=== PATIENT | female | born 1930 | race Caucasian/White ===

== ENCOUNTER → 2016-10-26 | Outpatient (CLI) | payer MEDICARE, BC ==
--- NOTE | 2016-10-26 15:01 | NM ---
EXAMINATION TYPE: NM DatScan Brain SPECT DATE OF EXAM: 10/26/2016 2:51 PM COMPARISON: CT brain 21 September 2016 HISTORY: Amnesia TECHNIQUE: 10 drops of Lugol's solution was administered 1 hour prior to injection as a thyroid bloc rafa agent. After the administration of 4.16 mCi I-123 Ioflupane DaTscan. Images obtained 3 hours p ost injection. SPECT images of the brain were acquired with axial and coronal reconstructions. FINDINGS: Symmetric normal biodistribution of the radio pharmaceutical within the basal ganglia is noted. IMPRESSION: Normal SEVERINO scan
== END | disposition home or self-care (01) ==
LOC: RADNMMAIN 09:52
PROVIDERS: ATTEND Psychiatry & Neurology Neurology
DX: R41.3 Other amnesia (principal)
CPT/HCPCS: 78607; A9584

== ENCOUNTER 2017-04-05 09:59 | Inpatient (IN) | payer MEDICARE, BC ==
[2017-04-05] MEDS ORDERED: SODIUM CHLORIDE 0.9% 500 ML IV STA (10:27)
[2017-04-05] MEDS ORDERED: METOPROLOL TARTRATE 50 MG TAB PO STA (10:27)
[2017-04-05] MEDS ORDERED: ENALAPRILAT 1.25 MG/ML 1 ML VIAL IVP STA (10:27)
--- NOTE | 2017-04-05 10:32 | ED ---
General Adult HPI - General Chief complaint: Weakness Stated complaint: Weakness Time Seen by Provider: 04/05/17 10:00 Source: EMS, RN notes reviewed Mode of arrival: EMS Limitations: no limitations - History of Present Illness Initial comments: This is an 86-year-old female presents emergency Department because friend stated she was altered mentally confused he knows the date or the day of the week. Patient also had some facial droop that was very intermittent and patient herself complained of being very weak. Currently according to the same friends the patient is at her baseline at this point in time she is alert and oriented 3 she has no facial deficits and she feels fine. Patient denies headache patient denies any numbness or weakness patient states she didn't realize she had any slurred speech. Patient denies any chest pain palpitations difficulty breathing or shortness of breath. Patient denies any abdominal pain patient denies any nausea vomiting diarrhea. Patient denies any recent fever chills or cough. Patient denies any dysuria hematuria urinary frequency. - Related Data Home Medications Medication Instructions Recorded Confirmed Aspirin 81 mg PO DAILY 05/06/14 04/05/17 Omeprazole [PriLOSEC] 20 mg PO AC-BRKFST 05/06/14 04/05/17 Simvastatin [Zocor] 40 mg PO HS 05/06/14 04/05/17 Metoprolol Tartrate 50 mg PO QAM 03/24/16 04/05/17 Docusate [Colace] 100 mg PO DAILY 06/28/16 04/05/17 Metoprolol Tartrate [Lopressor] 25 mg PO HS 06/28/16 04/05/17 Furosemide [Lasix] 40 mg PO Q48H 07/20/16 04/05/17 Magnesium Oxide [Mag-Ox] 250 mg PO DAILY 07/20/16 04/05/17 Baclofen [Lioresal] 10 mg PO HS PRN 04/05/17 04/05/17 Calcium Carbonate [Calcium] 600 mg PO HS 04/05/17 04/05/17 Donepezil [Aricept] 5 mg PO HS 04/05/17 04/05/17 Levothyroxine Sodium [Synthroid] 100 mcg PO DAILY 04/05/17 04/05/17 Potassium 99 mg PO DAILY 04/05/17 04/05/17 Previous Rx's Medication Instructions Recorded Clopidogrel [Plavix] 75 mg PO DAILY #30 tab 09/22/16 Lisinopril [Prinivil] 20 mg PO BID #0 09/22/16 Allergies Allergy/AdvReac Type Severity Reaction Status Date / Time cephalexin monohydrate Allergy Swelling Verified 04/05/17 10:35 [From Keflex] shellfish derived [Shellfish] Allergy Unknown Verified 04/05/17 10:35 scopolamine AdvReac Hallucinati Verified 04/05/17 10:35 ons Review of Systems ROS Statement: Those systems with pertinent positive or pertinent negative responses have been documented in the HPI. ROS Other: All systems not noted in ROS Statement are negative. 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, NUMBNESS AND PROBLEMS STANDING FOR LONG PERIODS OF TIME Last Myocardial Infarction Date:: UNKNOWN History of Any Multi-Drug Resistant Organisms: None Reported Past Surgical History: Coronary Bypass/CABG, Heart Catheterization With Stent, Joint Replacement, Orthopedic Surgery Past Anesthesia/Blood Transfusion Reactions: No Reported Reaction Date of Last Stent Placement:: UNKNOWN Past Psychological History: No Psychological Hx Reported Smoking Status: Never smoker Past Alcohol Use History: Occasional Past Drug Use History: None Reported - Past Family History Mother Family Medical History: Unable to Obtain Father Family Medical History: Myocardial Infarction ([place]) General Exam - General Exam Comments Initial Comments: GENERAL: Patient is well-developed and well-nourished. Patient is nontoxic and well- hydrated and is in no acute distress. ENT: Neck is soft and supple. No significant lymphadenopathy is noted. Oropharynx is clear. Moist mucous membranes. Neck has full range of motion without eliciting any pain. EYES: The sclera were anicteric and conjunctiva were pink and moist. Extraocular movements were intact and pupils were equal round and reactive to light. Eyelids were unremarkable. PULMONARY: Unlabored respirations. Good breath sounds bilaterally. No audible rales rhonchi or wheezing was noted. CARDIOVASCULAR: There is a regular rate and rhythm without any murmurs gallops or rubs. ABDOMEN: Soft and nontender with normal bowel sounds. No palpable organomegaly was noted. There is no palpable pulsatile mass. SKIN: Skin is clear with no lesions or rashes and otherwise unremarkable. NEUROLOGIC: Patient is alert and oriented x3. Cranial nerves II through XII are grossly intact. Motor and sensory are also intact. Normal speech, volume and content. Symmetrical smile. Cerebellar exam grossly intact. MUSCULOSKELETAL: Normal extremities with adequate strength and full range of motion. No lower extremity swelling or edema. No calf tenderness. LYMPHATICS: No significant lymphadenopathy is noted PSYCHIATRIC: Normal psychiatric evaluation. Normal interpersonal interactions appears functionally intact in deals appropriately with others. No signs of depression. No signs of anxiety. Limitations: no limitations Course Vital Signs 04/05/17 04/05/17 04/05/17 10:11 10:45 11:15 Temperature 97.3 F L Pulse Rate 69 54 L 60 Respiratory 16 20 20 Rate Blood Pressure 212/98 181/82 210/97 O2 Sat by Pulse 99 100 98 Oximetry 04/05/17 04/05/17 04/05/17 11:49 12:35 13:19 Temperature 97.6 F Pulse Rate 74 57 L 59 L Respiratory 20 20 20 Rate Blood Pressure 204/100 195/79 180/82 O2 Sat by Pulse 97 99 98 Oximetry Medical Decision Making - Medical Decision Making EKG shows sinus bradycardia 59 bpm NV interval is 182 QRS is 104 QT interval is 446 QTC is 441. Patient's EKG shows no ST segment elevation or depression. CT of the brain shows no acute abnormality. I went back into the room to reevaluate the patient and she was again having an episode of altered mental status it lasted about 15-20 minutes I gave her half an Ativan and seemed to completely resolved. When I went to admit the patient I went back into reevaluate the patient she was again at her neurologic baseline. - Lab Data Result diagrams: 04/05/17 10:20 04/05/17 10:20 Lab Results 04/05/17 04/05/17 04/05/17 Range/Units 10:20 10:20 10:20 WBC 6.9 (3.8-10.6) k/uL RBC 3.80 (3.80-5.40) m/uL Hgb 12.5 (11.4-16.0) gm/dL Hct 36.3 (34.0-46.0) % MCV 95.4 (80.0-100.0) fL MCH 32.8 (25.0-35.0) pg MCHC 34.4 (31.0-37.0) g/dL RDW 13.1 (11.5-15.5) % Plt Count 380 (150-450) k/uL Neutrophils % 73 % Lymphocytes % 15 % Monocytes % 7 % Eosinophils % 2 % Basophils % 0 % Neutrophils # 5.0 (1.3-7.7) k/uL Lymphocytes # 1.0 (1.0-4.8) k/uL Monocytes # 0.5 (0-1.0) k/uL Eosinophils # 0.2 (0-0.7) k/uL Basophils # 0.0 (0-0.2) k/uL PT (9.0-12.0) sec INR (<1.1) APTT (22.0-30.0) sec Sodium 133 L (137-145) mmol/L Potassium 4.7 (3.5-5.1) mmol/L Chloride 101 (98-107) mmol/L Carbon Dioxide 25 (22-30) mmol/L Anion Gap 7 mmol/L BUN 20 H (7-17) mg/dL Creatinine 1.14 H (0.52-1.04) mg/dL Est GFR (MDRD) Af Amer 55 (>60 ml/min/1.73 sqM) Est GFR (MDRD) Non-Af 45 (>60 ml/min/1.73 sqM) Glucose 92 (74-99) mg/dL Calcium 9.3 (8.4-10.2) mg/dL Total Bilirubin 0.6 (0.2-1.3) mg/dL AST 19 (14-36) U/L ALT 17 (9-52) U/L Alkaline Phosphatase 80 (38-126) U/L Total Creatine Kinase 78 (30-135) U/L CK-MB (CK-2) 1.3 (0.0-2.4) ng/mL CK-MB (CK-2) Rel Index 1.7 Troponin I <0.012 (0.000-0.034) ng/mL Total Protein 6.5 (6.3-8.2) g/dL Albumin 3.7 (3.5-5.0) g/dL Urine Color Urine Appearance (Clear) Urine pH (5.0-8.0) Ur Specific [place] (1.001-1.035) Urine Protein (Negative) Urine Glucose (UA) (Negative) Urine Ketones (Negative) Urine Blood (Negative) Urine Nitrite (Negative) Urine Bilirubin (Negative) Urine Urobilinogen (<2.0) mg/dL Ur Leukocyte Esterase (Negative) 04/05/17 04/05/17 Range/Units 10:20 12:32 WBC (3.8-10.6) k/uL RBC (3.80-5.40) m/uL Hgb (11.4-16.0) gm/dL Hct (34.0-46.0) % MCV (80.0-100.0) fL MCH (25.0-35.0) pg MCHC (31.0-37.0) g/dL RDW (11.5-15.5) % Plt Count (150-450) k/uL Neutrophils % % Lymphocytes % % Monocytes % % Eosinophils % % Basophils % % Neutrophils # (1.3-7.7) k/uL Lymphocytes # (1.0-4.8) k/uL Monocytes # (0-1.0) k/uL Eosinophils # (0-0.7) k/uL Basophils # (0-0.2) k/uL PT 10.1 (9.0-12.0) sec INR 1.0 (<1.1) APTT 22.3 (22.0-30.0) sec Sodium (137-145) mmol/L Potassium (3.5-5.1) mmol/L Chloride (98-107) mmol/L Carbon Dioxide (22-30) mmol/L Anion Gap mmol/L BUN (7-17) mg/dL Creatinine (0.52-1.04) mg/dL Est GFR (MDRD) Af Amer (>60 ml/min/1.73 sqM) Est GFR (MDRD) Non-Af (>60 ml/min/1.73 sqM) Glucose (74-99) mg/dL Calcium (8.4-10.2) mg/dL Total Bilirubin (0.2-1.3) mg/dL AST (14-36) U/L ALT (9-52) U/L Alkaline Phosphatase (38-126) U/L Total Creatine Kinase (30-135) U/L CK-MB (CK-2) (0.0-2.4) ng/mL CK-MB (CK-2) Rel Index Troponin I (0.000-0.034) ng/mL Total Protein (6.3-8.2) g/dL Albumin (3.5-5.0) g/dL Urine Color Colorless Urine Appearance Clear (Clear) Urine pH 8.0 (5.0-8.0) Ur Specific [place] 1.004 (1.001-1.035) Urine Protein Negative (Negative) Urine Glucose (UA) Negative (Negative) Urine Ketones Negative (Negative) Urine Blood Negative (Negative) Urine Nitrite Negative (Negative) Urine Bilirubin Negative (Negative) Urine Urobilinogen <2.0 (<2.0) mg/dL Ur Leukocyte Esterase Negative (Negative) Disposition Clinical Impression: TIA (transient ischemic attack) Disposition: ADMITTED IP TO THIS HOSP Referrals: Tylor Maldonado MD [Primary Care Provider] - 1-2 days Time of Disposition: 13:40
[2017-04-05 10:36] LABS: Basophils % (A) 0 %; CH 32.5; CHCM 34.2; Eosinophils # (A) 0.2 k/uL (0-0.7); Eosinophils % (A) 2 %; HCT 36.3 % (34.0-46.0); HDW 2.34; HGB 12.5 gm/dL (11.4-16.0); Luc # (Auto) 0.23; Luc % (Auto) 3; Lymphocytes % (A) 15 %; MCH 32.8 pg (25.0-35.0); MCHC 34.4 g/dL (31.0-37.0); MCV 95.4 fL (80.0-100.0); Mean Platelet Volume 6.6; Monocytes # (A) 0.5 k/uL (0-1.0); Monocytes % (A) 7 %; Neutrophils % (A) 73 %; RDW 13.1 % (11.5-15.5); WBC 6.9 k/uL (3.8-10.6); WBC (Perox) 6.59
[2017-04-05 10:45] LABS: Calcium 9.3 mg/dL (8.4-10.2); Potassium 4.7 mmol/L (3.5-5.1); Total Bilirubin 0.6 mg/dL (0.2-1.3); Total Protein 6.5 g/dL (6.3-8.2)
[2017-04-05 10:46] LABS: Partial Thromboplastin Time 22.3 sec (22.0-30.0); Prothrombin Time 10.1 sec (9.0-12.0)
[2017-04-05 10:57] LABS: Creatine Kinase 78 U/L (30-135)
[2017-04-05 11:10] LABS: Creatine Kinase MB 1.3 ng/mL (0.0-2.4); Troponin I <0.012 ng/mL (0.000-0.034)
--- NOTE | 2017-04-05 11:16 | CT ---
EXAMINATION TYPE: CT brain wo con DATE OF EXAM: 04/05/2017 COMPARISON: Previous study dated 09/21/2016 HISTORY: Neuro deficits CT DLP: 999.80 mGycm Automated exposure control for dose reduction was used. FINDINGS: There are generalized changes of sulcal prominence and ventriculomegaly, compatible with atrophic rafael nge. There is diffuse periventricular white matter lucency, compatible with chronic white matter isch emic change. There is no acute focal lesion, mass effect or midline shift identified. Do not see evid ence of intracranial blood. There is mild mucoperiosteal thickening involving the ethmoid sinuses bilaterally. There is fluid in the left-sided mastoid air cells and also in some of the right-sided mastoid air cells. IMPRESSION: 1. NO ACUTE INTRACRANIAL ABNORMALITY. 2. ATROPHIC CHANGE. 3. CHRONIC WHITE MATTER ISCHEMIC CHANGE. 4. CHRONIC SINUS MUCOSAL DISEASE. 5. EVIDENCE OF BILATERAL MASTOIDITIS, GREATER ON THE LEFT THAN THE RIGHT.
--- NOTE | 2017-04-05 11:24 | XR ---
EXAMINATION TYPE: XR chest 2V DATE OF EXAM: 04/05/2017 COMPARISON: 09/21/2016 TECHNIQUE: PA and lateral views submitted. HISTORY: Altered mental status FINDINGS: The lungs are clear and there is no pneumothorax, pleural effusion, or focal pneumonia. Degenerativ e changes spine with postsurgical changes involving the mediastinum. Heart is enlarged and there is h yperinflation. Prominence the right paratracheal soft tissues may be related to ectatic vasculature a ppears stable. Tiny calcified granuloma left upper lobe. Biapical pleural thickening. Correlate for p revious coronary artery stenting. IMPRESSION: 1. No acute process. Correlate for cardiomegaly and COPD.
[2017-04-05] MEDS ORDERED: LORazepam 2 MG/ML SYRINGE IV STA (11:58)
[2017-04-05 12:46] LABS: Appearance,Urine Clear (Clear); Bilirubin,Urine Negative (Negative); Glucose,Urine (UA) Negative (Negative); Ketones,Urine Negative (Negative); Leukocyte Esterase,Urine Negative (Negative); Nitrite,Urine Negative (Negative); Protein,Urine Negative (Negative); Specific Gravity,Urine 1.004 (1.001-1.035); UA Billing (MACRO vs. MICRO) CHEM; Urobilinogen,Urine <2.0 mg/dL (<2.0)
[2017-04-05] MEDS ORDERED: ASPIRIN 325 MG TAB PO STA (13:48)
[2017-04-05] MEDS ORDERED: RX INFO: IV CONTRAST WAS GIVEN 1 EACH MISC MISCELLANE PRN (13:52)
--- NOTE | 2017-04-05 15:13 | US ---
EXAMINATION TYPE: US carotid duplex BILAT DATE OF EXAM: 04/05/2017 COMPARISON: US CLINICAL HISTORY: Stenosis. Stenosis EXAM MEASUREMENTS: RIGHT: Peak Systolic Velocity (PSV) cm/sec ----- Right CCA: 58.9 ----- Right ICA: 98.8 ----- Right ECA: 88.7 ICA/CCA ratio: 1.7 RIGHT: End Diastole cm/sec ----- Right CCA: 11.7 ----- Right ICA: 19.9 ----- Right ECA: 0.0 LEFT: Peak Systolic Velocity (PSV) cm/sec ----- Left CCA: 71.0 ----- Left ICA: 120.5 ----- Left ECA: 112.8 ICA/CCA ratio: 1.7 LEFT: End Diastole cm/sec ----- Left CCA: 12.2 ----- Left ICA: 17.7 ----- Left ECA: 0.0 VERTEBRALS (direction of flow): Right Vertebral: Antegrade Left Vertebral: Antegrade Bilateral intimal thickening, plaque bilateral bulb, no elevated velocities, no significant stenosis. IMPRESSION: 1. Bilateral intimal thickening and plaque with no significant hemodynamic stenosis.
[2017-04-05] MEDS ORDERED: hydrALAZINE HCL 20 MG/ML 1 ML VIAL IVP STA (15:35)
--- NOTE | 2017-04-05 15:58 | CT ---
EXAMINATION TYPE: CT angio head neck DATE OF EXAM: 04/05/2017 COMPARISON: 09/21/2016 HISTORY: 86-year-old female with pain TECHNIQUE: Contiguous axial scanning of the head and neck performed following administration of 60 mL Omnipaque 350 and 50 mL saline flush. Coronal and sagittal MIP reconstructions performed. Rotational 3-D reconstructions generated on a dedicated independent workstation. CT DLP: 198.9 mGycm Automated exposure control for dose reduction was used. FINDINGS: Head: There is persistent origin of the right posterior cerebral artery. Mild apical scarring calcifications within the carotid siphons both anterior and posterior circulatio ns are patent without aneurysmal change or significant stenosis seen no internal carotid or vertebral /basilar artery occlusion. Incidentally, there is continued opacification of the bilateral mastoid air cells. NECK: There is conventional arterial branching anatomy. Both vertebral artery origins are patent and the v ertebral arteries are codominant and patent throughout her course. There is mild arthroscopic calcification at the right carotid bifurcation with just under 50% narrowi ng of the carotid bulb. On the left, there is atherosclerotic plaque and calcification causing around 50% narrowing at the pr oximal ICA/bifurcation. No hemodynamically significant stenosis is seen on either side. IMPRESSION: 1. NO INTRACRANIAL LARGE VESSEL OCCLUSION, SIGNIFICANT STENOSIS, OR ANEURYSMAL CHANGE SEEN. 2. CONTINUED OPACIFICATION OF THE BILATERAL MASTOID AIR CELLS. CORRELATE FOR ANY MASTOID PAIN TO EXCL UDE MASTOIDITIS. 3. MILD, JUST UNDER 50% ATHEROSCLEROTIC NARROWING AT THE RIGHT CAROTID BULB AND APPROXIMATELY 50% JENNIFER ROWING OF THE PROXIMAL LEFT ICA/BIFURCATION, SIMILAR TO 09/21/2016.
--- NOTE | 2017-04-05 16:58 | ECHOF ---
Referral Reason:Thrombus MEASUREMENTS -------- HEIGHT: 165.1 cm WEIGHT: 61.7 kg BP: IVSd: 1.2 cm (0.6 - 1.1) LVIDd: 4.2 cm (3.9 - 5.3) LVPWd: 1.2 cm (0.6 - 1.1) IVSs: 1.3 cm LVIDs: 3.5 cm LVPWs: 1.0 cm LA Diam: 4.0 cm (2.7 - 3.8) LAESV Index (A-L): 30.71 ml/m Ao Diam: 3.4 cm (2.0 - 3.7) AV Cusp: 1.8 cm (1.5 - 2.6) LA Diam: 2.7 cm (2.7 - 3.8) MV EXCURSION: 8.200 mm (> 18.000) MV EF SLOPE: 44 mm/s (70 - 150) EPSS: 1.3 cm MV E Joe: 0.37 m/s MV DecT: 247 ms MV A Joe: 0.70 m/s MV E/A Ratio: 0.53 AR PHT: 521 ms FINDINGS -------- Sinus rhythm. This was a technically adequate study. There is mild concentric left ventricular hypertrophy. Overall left ventricular systolic function is mild-moderately impaired with, an EF between 40 - 45 %. Inferior Hypokinesis The right ventricle is normal in size. LA is midly dilated 29-33ml/m2. The right atrial size is normal. There is mild aortic valve sclerosis. There is moderate aortic regurgitation. Mild mitral annular calcification present. Moderate mitral regurgitation is present. Mild tricuspid regurgitation present. There is no evidence of pulmonary hypertension. The right ventricular systolic pressure, as measured by Doppler, is {RVSP}. Trace/mild (physiologic) pulmonic regurgitation. The aortic root size is normal. There is no pericardial effusion. CONCLUSIONS -------- 1. There is mild concentric left ventricular hypertrophy. 2. The right ventricular systolic pressure, as measured by Doppler, is {RVSP}. 3. Trace/mild (physiologic) pulmonic regurgitation. 4. The aortic root size is normal. 5. There is no pericardial effusion. 6. Overall left ventricular systolic function is mild-moderately impaired with, an EF between 40 - 45 %. 7. Inferior Hypokinesis 8. LA is midly dilated 29-33ml/m2. 9. There is mild aortic valve sclerosis. 10. There is moderate aortic regurgitation. 11. Mild mitral annular calcification present. 12. Mild tricuspid regurgitation present. 13. There is no evidence of pulmonary hypertension. [employer]NER OPERATOR: Ernestine Regalado RDCS
[2017-04-05] MEDS ORDERED: BACLOFEN 10 MG TAB PO PRN (20:36)
[2017-04-05] MEDS ORDERED: ONDANSETRON 4 MG/2 ML VIAL IVP PRN (20:39)
[2017-04-05] MEDS ORDERED: FUROSEMIDE 40 MG TAB PO ONE (20:45)
--- NOTE | 2017-04-05 21:37 | P.HPIM ---
History of Present Illness H&P Date: 04/05/17 Chief Complaint: Mental status change This is a pleasant 86-year-old lady patient of Dr. Parker Maldonado, DR FREDDIE Gold. She has underlying history of CAD dementia hyperlipidemia hypertension and previous MRI hypothyroidism chronic neuropathy of right leg. She was doing well at home when friends noticed her to be mentally confused and disoriented, there is also some facial droop that was intermittently noted, patient has been noted to be weaker than usual, there was no focal motor deficits noted and no slurred speech, no chest pain no palpitations no shortness of breath no cough no aspiration no fever no chills no hematuria no urinary frequency. He was subsequently seen in emergency room for further evaluation, her last admission was approximately August 2016 when patient was admitted secondary to syncope and acute fall in the bathroom at that time, she has multiple syncopal events that week chronically She has trouble with her walking she had neuropathy of the right leg She has underlying spinal stenosis requires walker for ambulatory assistance, Patient did not have any history of CVA in the past, no arrhythmias no seizures in the emergency room urinalysis was negative, no leukocytosis, pain is 1.14 with BUN of 20, patient is admitted for possible TIA with altered mentation Review of Systems Constitutional: Reports as per HPI, Denies anorexia, Denies chills, Denies chronic headaches, Denies chronic pain, Denies daytime sleepiness, Denies fatigue, Denies fever, Denies lethargy, Denies malaise, Denies night sweats, Denies poor appetite, Denies sweats, Denies weakness, Denies weight gain, Denies weight loss Ears, nose, mouth and throat: Reports as per HPI, Denies ant. neck pain, Denies bleeding gums, Denies dental pain, Denies dysphagia, Denies epistaxis, Denies headache, Denies hoarseness, Denies mouth pain, Denies nasal congestion, Denies nasal discharge, Denies neck fullness/pressure, Denies neck lump, Denies nose pain, Denies odynophagia, Denies post-nasal drip, Denies sinus pain, Denies sinus pressure, Denies swelling in mouth, Denies swelling in throat, Denies sore throat, Denies vertigo, Denies voice changes Cardiovascular: Reports as per HPI, Denies chest pain, Denies claudication, Denies decreased exercise tolerance, Denies dyspnea on exertion, Denies edema, Denies high blood pressure, Denies irregular heart beat, Denies leg edema, Denies lightheadedness, Denies orthopnea, Denies palpitations, Denies paroxysmal nocturnal dyspnea, Denies phlebitis, Denies rapid heart beat, Denies shortness of breath, Denies syncope Respiratory: Reports as per HPI, Denies congestion, Denies cough, Denies cough with sputum, Denies dyspnea, Denies excessive sputum, Denies hemoptysis, Denies home oxygen, Denies pain, Denies pain on inspiration, Denies pleurisy, Denies respiratory infections, Denies sleep apnea, Denies snoring, Denies wheezing Gastrointestinal: Reports as per HPI, Denies abdominal pain, Denies belching, Denies bloating, Denies BRBPR, Denies change in bowel habits, Denies coffee ground emesis, Denies constipation, Denies diarrhea, Denies dyspepsia, Denies early satiety, Denies excessive gas, Denies heartburn, Denies hematemesis, Denies hematochezia, Denies indigestion, Denies jaundice, Denies lactose intolerance, Denies loss of appetite, Denies melena, Denies nausea, Denies vomiting Genitourinary: Reports as per HPI, Denies abnormal vaginal bleeding, Denies decreased libido, Denies difficulty conceiving, Denies difficulty voiding, Denies dysmenorrhea, Denies dyspareunia, Denies dysuria, Denies flank pain, Denies genital sores, Denies hematuria, Denies hot flashes, Denies incomplete emptying, Denies kidney stones, Denies menorrhagia, Denies mixed incontinence, Denies nocturia, Denies pelvic pain, Denies post void dribbling, Denies , Denies prolapse symptoms, Denies stress incontinence, Denies urge incontinence , Denies urgency, Denies urinary frequency, Denies vaginal discharge, Denies vaginal dryness, Denies vaginal itching, Denies vaginal odor Menstruation: Reports as per HPI Musculoskeletal: Reports as per HPI Integumentary: Reports as per HPI Neurological: Reports as per HPI, Reports change in mentation Psychiatric: Reports as per HPI, Denies anhedonia, Denies anxiety, Denies anxiety attacks, Denies change in appetite, Denies change in libido, Denies change in sleep habits, Denies confusion, Denies depression, Denies difficulty concentrating, Denies disorientation, Denies hallucinations, Denies hopelessness , Denies hypersomnia, Denies insomnia, Denies irritability, Denies memory loss, Denies mood swings, Denies paranoia, Denies sadness/tearfulness, Denies sleep disturbances, Denies suicidal ideation Past Medical History Past Medical History: Coronary Artery Disease (CAD), CVA/TIA, Dementia, GERD/ Reflux, Hyperlipidemia, Hypertension, Myocardial Infarction (VT), Osteoarthritis (OA), Rheumatoid Arthritis (RA), Syncope, Thyroid Disorder Additional Past Medical History / Comment(s): Falls, gait dysfunction, TIAs, 2 MIs in 2002, R leg neuropathy, spinal stenosis involving cervical and lumbar areas, cervical disc dx with herniation, R leg neuropathy, vertigo at times, hypothyroid, hyponatremia, vitamin D deficiency. Last Myocardial Infarction Date:: 2002 History of Any Multi-Drug Resistant Organisms: None Reported Past Surgical History: Appendectomy, Coronary Bypass/CABG, Heart Catheterization With Stent, Joint Replacement Additional Past Surgical History / Comment(s): 2002 CABG-2 vessel, PCI with stent 2002, total L hip arthroplasty, back injections. Past Anesthesia/Blood Transfusion Reactions: No Reported Reaction Date of Last Stent Placement:: 2002 Past Psychological History: No Psychological Hx Reported Additional Psychological History / Comment(s): Pt resides alone. She no longer drives, [facility] [employer] She has no home care. Family member manages her medications for her. Smoking Status: Never smoker Past Alcohol Use History: Occasional Past Drug Use History: None Reported - Past Family History Mother Family Medical History: CVA/TIA Additional Family Medical History / Comment(s): Mother of a CVA at the age of 67yrs. Father Family Medical History: Myocardial Infarction (VT) Additional Family Medical History / Comment(s): Father of a VT in his 80's Medications and Allergies Home Medications Medication Instructions Recorded Confirmed Type Aspirin 81 mg PO DAILY 05/06/14 04/05/17 History Omeprazole [PriLOSEC] 20 mg PO AC-BRKFST 05/06/14 04/05/17 History Simvastatin [Zocor] 40 mg PO HS 05/06/14 04/05/17 History Metoprolol Tartrate 50 mg PO QAM 03/24/16 04/05/17 History Docusate [Colace] 100 mg PO DAILY 06/28/16 04/05/17 History Metoprolol Tartrate [Lopressor] 25 mg PO HS 06/28/16 04/05/17 History Furosemide [Lasix] 40 mg PO Q48H 07/20/16 04/05/17 History Magnesium Oxide [Mag-Ox] 250 mg PO DAILY 07/20/16 04/05/17 History Baclofen [Lioresal] 10 mg PO HS PRN 04/05/17 04/05/17 History Calcium Carbonate [Calcium] 600 mg PO HS 04/05/17 04/05/17 History Donepezil [Aricept] 5 mg PO HS 04/05/17 04/05/17 History Levothyroxine Sodium [Synthroid] 100 mcg PO DAILY 04/05/17 04/05/17 History Potassium 99 mg PO DAILY 04/05/17 04/05/17 History Allergies Allergy/AdvReac Type Severity Reaction Status Date / Time cephalexin monohydrate Allergy Swelling Verified 04/05/17 10:35 [From Keflex] shellfish derived [Shellfish] Allergy Unknown Verified 04/05/17 10:35 scopolamine AdvReac Hallucinati Verified 04/05/17 10:35 ons Physical Exam Vitals: Vital Signs Temp Pulse Pulse Resp BP BP BP 04/05/17 18:48 97.4 F L 75 20 143/67 04/05/17 18:00 70 18 140/68 04/05/17 17:17 97.5 F L 18 04/05/17 17:16 97.5 F L 64 19 140/67 04/05/17 16:07 98.6 F 18 04/05/17 15:29 97.7 F 55 L 19 193/68 04/05/17 13:19 97.6 F 59 L 20 180/82 04/05/17 12:35 57 L 20 195/79 04/05/17 11:49 74 20 204/100 04/05/17 11:15 60 20 210/97 04/05/17 10:45 54 L 20 181/82 04/05/17 10:11 97.3 F L 69 16 212/98 Pulse Ox 04/05/17 18:48 98 04/05/17 18:00 96 04/05/17 17:17 96 07/07/17 17:16 96 04/05/17 16:07 99 04/05/17 15:29 98 04/05/17 13:19 98 04/05/17 12:35 99 04/05/17 11:49 97 04/05/17 11:15 98 04/05/17 10:45 100 04/05/17 10:11 99 Intake and Output 04/05/17 04/05/17 04/05/17 06:59 14:59 22:59 Intake Total 80 Balance 80 Intake: IV 80 Sodium Chloride 0.9% 500 80 ml @ 999 mls/hr IV .Q31M STA Rx#:[id number] Other: Weight 61.235 kg Patient Weight 04/06/17 06:59 Weight 61.235 kg - Constitutional General appearance: cooperative, no acute distress, thin - EENT Eyes: anicteric sclerae, EOMI, PERRLA, dentition normal, normal appearance ENT: NA/AT, normal oropharynx - Neck Neck: normal ROM - Respiratory Respiratory: bilateral: CTA, negative: diminished, dullness, rales, rhonchi - Cardiovascular Rhythm: regular Heart sounds: normal: S1, S2 Abnormal Heart Sounds: no systolic murmur, no diastolic murmur, no rub, no S3 Gallop, no S4 Gallop, no click, no other - Gastrointestinal General gastrointestinal: no absent bowel sounds, no decreased bowel sounds, no distended, no hepatomegaly, no hyperactive bowel sounds, no normal bowel sounds , no organomegaly, no rigid, no scaphoid, soft, no splenomegaly, no tenderness, no umbilical hernia, no ventral hernia - Integumentary Integumentary: normal, normal turgor - Neurologic Neurologic: CNII-XII intact - Musculoskeletal Musculoskeletal: gait normal, strength equal bilaterally - Psychiatric Psychiatric: A&O x's 3, appropriate affect, intact judgment & insight Results CBC & Chem 7: 04/05/17 10:20 04/05/17 10:20 Labs: Abnormal Lab Results - Last 24 Hours (Table) 04/05/17 Range/Units 10:20 Sodium 133 L (137-145) mmol/L BUN 20 H (7-17) mg/dL Creatinine 1.14 H (0.52-1.04) mg/dL Laboratory Results WBC 6.9 k/uL (3.8-10.6) 04/05/17 10:20 RBC 3.80 m/uL (3.80-5.40) 04/05/17 10:20 Hgb 12.5 gm/dL (11.4-16.0) 04/05/17 10:20 Hct 36.3 % (34.0-46.0) 04/05/17 10:20 MCV 95.4 fL (80.0-100.0) 04/05/17 10:20 MCH 32.8 pg (25.0-35.0) 04/05/17 10:20 MCHC 34.4 g/dL (31.0-37.0) 04/05/17 10:20 RDW 13.1 % (11.5-15.5) 04/05/17 10:20 Plt Count 380 k/uL (150-450) 04/05/17 10:20 Neutrophils % 73 % 04/05/17 10:20 Lymphocytes % 15 % 04/05/17 10:20 Monocytes % 7 % 04/05/17 10:20 Eosinophils % 2 % 04/05/17 10:20 Basophils % 0 % 04/05/17 10:20 Neutrophils # 5.0 k/uL (1.3-7.7) 04/05/17 10:20 Lymphocytes # 1.0 k/uL (1.0-4.8) 04/05/17 10:20 Monocytes # 0.5 k/uL (0-1.0) 04/05/17 10:20 Eosinophils # 0.2 k/uL (0-0.7) 04/05/17 10:20 Basophils # 0.0 k/uL (0-0.2) 04/05/17 10:20 PT 10.1 sec (9.0-12.0) 04/05/17 10:20 INR 1.0 (<1.1) 04/05/17 10:20 APTT 22.3 sec (22.0-30.0) 04/05/17 10:20 Sodium 133 mmol/L (137-145) L 04/05/17 10:20 Potassium 4.7 mmol/L (3.5-5.1) 04/05/17 10:20 Chloride 101 mmol/L (98-107) 04/05/17 10:20 Carbon Dioxide 25 mmol/L (22-30) 04/05/17 10:20 Anion Gap 7 mmol/L 04/05/17 10:20 BUN 20 mg/dL (7-17) H 04/05/17 10:20 Creatinine 1.14 mg/dL (0.52-1.04) H 04/05/17 10:20 Est GFR (MDRD) Af Amer 55 (>60 ml/min/1.73 sqM) 04/05/17 10:20 Est GFR (MDRD) Non-Af 45 (>60 ml/min/1.73 sqM) 04/05/17 10:20 Glucose 92 mg/dL (74-99) 04/05/17 10:20 Calcium 9.3 mg/dL (8.4-10.2) 04/05/17 10:20 Total Bilirubin 0.6 mg/dL (0.2-1.3) 04/05/17 10:20 AST 19 U/L (14-36) 04/05/17 10:20 ALT 17 U/L (9-52) 04/05/17 10:20 Alkaline Phosphatase 80 U/L (38-126) 04/05/17 10:20 Total Creatine Kinase 78 U/L (30-135) 04/05/17 10:20 CK-MB (CK-2) 1.3 ng/mL (0.0-2.4) 04/05/17 10:20 CK-MB (CK-2) Rel Index 1.7 04/05/17 10:20 Troponin I <0.012 ng/mL (0.000-0.034) 04/05/17 10:20 Total Protein 6.5 g/dL (6.3-8.2) 04/05/17 10:20 Albumin 3.7 g/dL (3.5-5.0) 04/05/17 10:20 Urine Color Colorless 04/05/17 12:32 Urine Appearance Clear (Clear) 04/05/17 12:32 Urine pH 8.0 (5.0-8.0) 04/05/17 12:32 Ur Specific [place] 1.004 (1.001-1.035) 04/05/17 12:32 Urine Protein Negative (Negative) 04/05/17 12:32 Urine Glucose (UA) Negative (Negative) 04/05/17 12:32 Urine Ketones Negative (Negative) 04/05/17 12:32 Urine Blood Negative (Negative) 04/05/17 12:32 Urine Nitrite Negative (Negative) 04/05/17 12:32 Urine Bilirubin Negative (Negative) 04/05/17 12:32 Urine Urobilinogen <2.0 mg/dL (<2.0) 04/05/17 12:32 Ur Leukocyte Esterase Negative (Negative) 04/05/17 12:32 Thrombosis Risk Factor Assmnt - Choose All That Apply Any of the Below Risk Factors Present?: Yes Other Risk Factors: Yes Each Risk Factor Represents 3 Points: Age 75 years or older Other congenital or acquired thrombophilia - If yes, enter type in comment: No Thrombosis Risk Factor Assessment Total Risk Factor Score: 3 Thrombosis Risk Factor Assessment Level: Moderate Risk Assessment and Plan Plan: 1. Altered mentation with possibility of TIA, recurrent episodes were noted also in the emergency room, patient will be seen consultation by Dr. Navarro neurology, initial CAT scan of the brain face to reveal any abnormality, urinalysis normal patient has a normal EKG, symptoms lasted for approximately 15 minutes down emergency room Ativan at 0.5 mg seems to have helped however she is at risk for having a neurologic event based on her age and will be worked up for CVA carotid Dopplers echocardiogram would be performed, Plavix and aspirin was initiated CTA of carotid failed to reveal any significant stenosis During her last admission August 2016 2. History of syncope in the past last evaluated August 2016 3 history of cervical spinal stenosis C5-C6 no symptoms of myelopathy cervical spondylolisthesis C3-C4 with multilevel spondylosis posterior disc herniation T1 22 T2-T3 without significant impingement thoracic spinal cord 4 CAD at bedtime, increase lisinopril 20 mg twice a day secondary to uncontrolled hypertension 5. Hyperlipidemia and Zocor 6 Dementia on Aricept 7. Neuropathy lower extremity, chronic not on any medications had previous epidural steroid shots in the past 8 Osteoarthritis knees chronic apply lidocaine ointment of Voltaren gel 9 Hypertensive urgency acute, most likely contributing to her symptoms, lisinopril 20 mg twice a day maintain Lasix 40 mg every 48 hours or trach medications has when necessary enalapril 1.25 mg every 6 when necessary for systolic over 190 May possibly a component of anxiety will give Xanax 0.25 mg twice a day when necessary 10. Hypothyroidism on Synthroid 100 g daily DVT prophylaxis with Lovenox subcu 40 moderate risk based on caprni score
[2017-04-05] MEDS ORDERED: ENALAPRILAT 1.25 MG/ML 1 ML VIAL IVP PRN (21:38)
[2017-04-05 22:00] VITALS: RESP 18
[2017-04-05 22:08] LABS: Cholesterol 241 mg/dL (<200); HDL Cholesterol 54 mg/dL (40-60); Triglycerides 237 mg/dL (<150)
[2017-04-05] MEDS: ATORVASTATIN 20 MG TAB PO SCH (22:20)
[2017-04-05] MEDS: DONEPEZIL 5 MG TAB PO SCH (22:20)
[2017-04-05] MEDS: CALCIUM CARBONATE 500 MG CHEWABLE PO SCH (22:20)
[2017-04-05] MEDS: LISINOPRIL 20 MG TAB PO SCH (22:21)
[2017-04-05] MEDS: METOPROLOL TARTRATE 25 MG TAB PO SCH (22:21)
[2017-04-05] MEDS: ENOXAPARIN 40 MG/0.4 ML SYRINGE SQ SCH (22:21)
[2017-04-06] MEDS: PANTOPRAZOLE 40 MG TABLET PO SCH (06:52)
[2017-04-06] MEDS: LEVOTHYROXINE 100 MCG TAB PO SCH (06:52)
[2017-04-06] MEDS ORDERED: NON-FORMULARY DRUG (Potassium [Potassium] 99 MG) PO SCH (09:00)
[2017-04-06] MEDS: ALPRAZolam 0.25 MG TAB PO SCH ×3 (09:27→22:25)
[2017-04-06] MEDS: ASPIRIN 325 MG TAB PO SCH (09:27)
[2017-04-06] MEDS: DOCUSATE 100 MG CAP PO SCH (09:28)
[2017-04-06] MEDS: LISINOPRIL 20 MG TAB PO SCH ×2 (09:28→22:25)
[2017-04-06] MEDS: CLOPIDOGREL 75 MG TAB PO SCH (09:28)
[2017-04-06] MEDS: ENOXAPARIN 40 MG/0.4 ML SYRINGE SQ SCH (09:28)
[2017-04-06] MEDS: MAGNESIUM OXIDE 400 MG TAB PO SCH (09:28)
[2017-04-06] MEDS: METOPROLOL TARTRATE 50 MG TAB PO SCH (09:29)
--- NOTE | 2017-04-06 10:52 | P.PN ---
Subjective This is a pleasant 86-year-old lady patient of Dr. Parker Maldonado, DR FREDDIE Gold. She has underlying history of CAD dementia hyperlipidemia hypertension and previous MRI hypothyroidism chronic neuropathy of right leg. She was doing well at home when friends noticed her to be mentally confused and disoriented, there is also some facial droop that was intermittently noted, patient has been noted to be weaker than usual, there was no focal motor deficits noted and no slurred speech, no chest pain no palpitations no shortness of breath no cough no aspiration no fever no chills no hematuria no urinary frequency. He was subsequently seen in emergency room for further evaluation, her last admission was approximately August 2016 when patient was admitted secondary to syncope and acute fall in the bathroom at that time, she has multiple syncopal events that week chronically She has trouble with her walking she had neuropathy of the right leg She has underlying spinal stenosis requires walker for ambulatory assistance, Patient did not have any history of CVA in the past, no arrhythmias no seizures in the emergency room urinalysis was negative, no leukocytosis, pain is 1.14 with BUN of 20, patient is admitted for possible TIA with altered mentation 04/06: Patient had CT of head that showed no acute intracranial abnormalities, atrophic change, chronic white matter ischemic change, chronic sinus mucosal disease, bilateral mastoiditis. CT angio showed no intracranial large vessel occlusion, significant stenosis, or aneurysmal changes, mild atherosclerotic narrowing at the right carotid bulb and approximately 50% narrowing of the proximal left ICA bifurcation. Echocardiogram showed mild concentric left ventricular hypertrophy, ejection fraction 40-45%, moderate aortic regurgitation and mild tricuspid regurgitation. Carotid ultrasound shows bilateral thickening and plaque with no significant hemodynamic stenosis. Triglycerides 237, LDL 140, HDL 54, total cholesterol 241. BUN/creatinine mildly elevated, BUN 20 creatinine 1.14. Patient reports she is feeling well today. Granddaughter was at the bedside, she reports she has noticed some worsening memory loss but is still able to care for herself at home. She has good family support who checks on her often. Will order physical therapy consult, still awaiting neuro consult. Blood pressure elevated on first arrival , blood pressure has come down and is well controlled on current medications. Objective - Vital Signs Vital signs: Vital Signs Temp 96.5 F L 04/06/17 06:48 Pulse 64 04/06/17 06:48 Resp 18 04/06/17 06:48 BP 133/63 04/06/17 06:48 Pulse Ox 96 04/06/17 06:48 Intake & Output 04/05/17 04/06/17 04/06/17 18:59 06:59 18:59 Intake Total 80 Balance 80 Weight 61.235 kg 60.3 kg Intake: IV 80 Sodium Chloride 0.9% 500 80 ml @ 999 mls/hr IV .Q31M STA Rx#:[id number] Other: Voiding Method Bedside Commode # Voids 3 - Exam - Constitutional General appearance: cooperative, no acute distress, thin - EENT Eyes: anicteric sclerae, EOMI, PERRLA, dentition normal, normal appearance ENT: NA/AT, normal oropharynx - Neck Neck: normal ROM - Respiratory Respiratory: bilateral: CTA, negative: diminished, dullness, rales, rhonchi - Cardiovascular Rhythm: regular Heart sounds: normal: S1, S2 Abnormal Heart Sounds: no systolic murmur, no diastolic murmur, no rub, no S3 Gallop, no S4 Gallop, no click, no other - Gastrointestinal General gastrointestinal: no absent bowel sounds, no decreased bowel sounds, no distended, no hepatomegaly, no hyperactive bowel sounds, no normal bowel sounds , no organomegaly, no rigid, no scaphoid, soft, no splenomegaly, no tenderness, no umbilical hernia, no ventral hernia - Integumentary Integumentary: normal, normal turgor - Neurologic Neurologic: CNII-XII intact - Musculoskeletal Musculoskeletal: gait normal, strength equal bilaterally - Psychiatric Psychiatric: A&O x's 3, appropriate affect, intact judgment & insight - Labs CBC & Chem 7: 04/05/17 10:20 04/05/17 10:20 Labs: Abnormal Lab Results - Last 24 Hours (Table) 04/05/17 04/05/17 Range/Units 10:20 10:20 Sodium 133 L (137-145) mmol/L BUN 20 H (7-17) mg/dL Creatinine 1.14 H (0.52-1.04) mg/dL Triglycerides 237 H (<150) mg/dL Cholesterol 241 H (<200) mg/dL LDL Cholesterol, Calc 140 H (0-99) mg/dL Assessment and Plan Plan: Plan: 1. Altered mentation with possibility of TIA, patient awaiting neurology consult, CTA and CT completed, Plavix and aspirin were initiated. Carotid by ultrasound showed no significant hemodynamic stenosis. Will plan for physical therapy. 2. History of syncope in the past last evaluated August 2016 3 history of cervical spinal stenosis C5-C6 no symptoms of myelopathy cervical spondylolisthesis C3-C4 with multilevel spondylosis posterior disc herniation T1 22 T2-T3 without significant impingement thoracic spinal cord 4 CAD increase lisinopril 20 mg twice a day secondary to uncontrolled hypertension 5. Hyperlipidemia continue Lipitor 6 Dementia continue Aricept 7. Neuropathy lower extremity, chronic not on any medications had previous epidural steroid shots in the past 8 Osteoarthritis knees chronic apply lidocaine ointment or Voltaren gel 9 Hypertensive urgency acute, most likely contributing to her symptoms, lisinopril 20 mg twice a day, maintain Lasix 40 mg every 48 hours, continue enalapril 1.25 mg every 6 when necessary for systolic over 190 May possibly a component of anxiety will give Xanax 0.25 mg twice a day when necessary. Blood pressure currently well controlled. 10. Hypothyroidism on Synthroid 100 g daily DVT prophylaxis with Lovenox subcu 40 moderate risk based on caprni score GI prophylaxis with Protonix The above impression and plan of care have been discussed and directed by signing physician. Shayla Rivas nurse practitioner acting as scribe for signing physician.
--- NOTE | 2017-04-06 12:29 | P.CNNES ---
History of Present Illness Consult date: 04/06/17 Requesting physician: Lyn Raygoza Reason for Consult: TIA History of Present Illness: Patient is a pleasant 86-year-old female who is being evaluated today 04/06/2017 by the neurology service per the request of Dr. Lyn Raygoza for TIA. Patient has history of CAD, dementia, hyperlipidemia, hypertension, and chronic neuropathy of the right leg. Patient was doing well at home and had friends over in the morning for coffee. During that time it was noticed that patient had some mild facial droop and increased weakness and fatigue. Daughter states she checked patient's blood pressure and it was well over 200 systolic and over 100 diastolic. Patient was brought to [facility] emergency room for further evaluation. Patient does have a history of multiple syncopal events. Patient uses walker for ambulation at home. Computed tomography scan of the brain was done which showed no acute intracranial abnormality. CT did show atrophic changes and chronic white matter ischemic changes as well. Carotid Dopplers were done and showed no significant hemodynamic stenosis. CTA was done and showed no intracranial large vessel occlusion, significant stenosis, or aneurysmal change. Labs on admission showed CBC to be within normal limits, sodium 133, potassium 4.7, chloride 101, carbon dioxide 25. BUN 20 and creatinine 1.14. Abnormal lipid panel with triglycerides of 237, cholesterol 241, LDL 140, and HDL 54. Patient is on aspirin and Plavix in the home setting. At the time of my evaluation, patient is resting comfortably in bed and appears to be in no acute distress. Daughter is at the bedside. Review of Systems REVIEW OF SYSTEMS: Otherwise unremarkable and noncontributory. Past Medical History Past Medical History: Coronary Artery Disease (CAD), CVA/TIA, Dementia, GERD/ Reflux, Hyperlipidemia, Hypertension, Myocardial Infarction (NH), Osteoarthritis (OA), Rheumatoid Arthritis (RA), Syncope, Thyroid Disorder Additional Past Medical History / Comment(s): Falls, gait dysfunction, TIAs, 2 MIs in 2002, R leg neuropathy, spinal stenosis involving cervical and lumbar areas, cervical disc dx with herniation, R leg neuropathy, vertigo at times, hypothyroid, hyponatremia, vitamin D deficiency. Last Myocardial Infarction Date:: 2002 History of Any Multi-Drug Resistant Organisms: None Reported Past Surgical History: Appendectomy, Coronary Bypass/CABG, Heart Catheterization With Stent, Joint Replacement Additional Past Surgical History / Comment(s): 2002 CABG-2 vessel, PCI with stent 2002, total L hip arthroplasty, back injections. Past Anesthesia/Blood Transfusion Reactions: No Reported Reaction Date of Last Stent Placement:: 2002 Past Psychological History: No Psychological Hx Reported Additional Psychological History / Comment(s): Pt resides alone. She no longer drives, family takes her to [employer]. She has no home care. Family member manages her medications for her. Smoking Status: Never smoker Past Alcohol Use History: Occasional Past Drug Use History: None Reported - Past Family History Mother Family Medical History: CVA/TIA Additional Family Medical History / Comment(s): Mother of a CVA at the age of 67yrs. Father Family Medical History: Myocardial Infarction (NH) Additional Family Medical History / Comment(s): Father of a NH in his 80's Medications and Allergies Home Medications Medication Instructions Recorded Confirmed Type Aspirin 81 mg PO DAILY 05/06/14 04/05/17 History Omeprazole [PriLOSEC] 20 mg PO AC-BRKFST 05/06/14 04/05/17 History Simvastatin [Zocor] 40 mg PO HS 05/06/14 04/05/17 History Metoprolol Tartrate 50 mg PO QAM 03/24/16 04/05/17 History Docusate [Colace] 100 mg PO DAILY 06/28/16 04/05/17 History Metoprolol Tartrate [Lopressor] 25 mg PO HS 06/28/16 04/05/17 History Furosemide [Lasix] 40 mg PO Q48H 07/20/16 04/05/17 History Magnesium Oxide [Mag-Ox] 250 mg PO DAILY 07/20/16 04/05/17 History Baclofen [Lioresal] 10 mg PO HS PRN 04/05/17 04/05/17 History Calcium Carbonate [Calcium] 600 mg PO HS 04/05/17 04/05/17 History Donepezil [Aricept] 5 mg PO HS 04/05/17 04/05/17 History Levothyroxine Sodium [Synthroid] 100 mcg PO DAILY 04/05/17 04/05/17 History Potassium 99 mg PO DAILY 04/05/17 04/05/17 History Allergies Allergy/AdvReac Type Severity Reaction Status Date / Time cephalexin monohydrate Allergy Swelling Verified 07/07/17 10:35 [From Keflex] shellfish derived [Shellfish] Allergy Unknown Verified 04/05/17 10:35 scopolamine AdvReac Hallucinati Verified 04/05/17 10:35 ons Physical Examination - Vital Signs Vital Signs: Vital Signs Temp Pulse Pulse Resp BP BP BP 04/06/17 11:30 96.9 F L 65 18 125/60 04/06/17 08:48 96.9 F L 72 16 119/59 04/06/17 06:48 96.5 F L 64 18 133/63 04/06/17 04:00 69 18 04/06/17 02:48 97.1 F L 69 18 140/64 04/05/17 23:56 97.4 F L 74 18 104/52 04/05/17 22:48 97.3 F L 74 18 110/63 04/05/17 20:00 96.9 F L 71 18 168/69 04/05/17 18:48 97.4 F L 75 20 143/67 04/05/17 18:00 70 18 140/68 04/05/17 17:17 97.5 F L 18 04/05/17 17:16 97.5 F L 64 19 140/67 04/05/17 16:07 98.6 F 18 04/05/17 15:29 97.7 F 55 L 19 193/68 04/05/17 13:19 97.6 F 59 L 20 180/82 04/05/17 12:35 57 L 20 195/79 Pulse Ox 04/06/17 11:30 97 04/06/17 08:48 96 04/06/17 06:48 96 04/06/17 04:00 04/06/17 02:48 96 04/05/17 23:56 95 04/05/17 22:48 93 L 04/05/17 20:00 96 04/05/17 18:48 98 04/05/17 18:00 96 04/05/17 17:17 96 04/05/17 17:16 96 04/05/17 16:07 99 04/05/17 15:29 98 04/05/17 13:19 98 04/05/17 12:35 99 Intake and Output 04/05/17 04/06/17 04/06/17 22:59 06:59 14:59 Intake Total 80 180 Balance 80 180 Intake: IV 80 Sodium Chloride 0.9% 500 80 ml @ 999 mls/hr IV .Q31M STA Rx#:[id number] Oral 180 Other: Voiding Method Bedside Commode Bedside Commode Bedside Commode # Voids 3 2 Weight 60.3 kg PHYSICAL EXAM: GENERAL APPEARANCE: Patient is a well-developed, female who appears to be in no acute distress. HEENT: Normocephalic, atraumatic, no facial asymmetry is seen. Neck is supple with no masses felt. CARDIOVASCULAR: Regular rate and rhythm. ABDOMEN: Nontender, nondistended. EXTREMITIES: Show no edema or clubbing. NEUROLOGICAL EXAM: Patient is awake, alert, and oriented 2. Patient had trouble finding the year but eventually stated 2017. Speech and language are normal. No facial asymmetry is seen on cranial nerve testing. Strength is full in all 4 extremities. Sensory exam decreased to right lower extremity due to chronic neuropathy. No tremors or seizure-like activities noted. Results - Laboratory Findings CBC and BMP: 04/05/17 10:20 04/05/17 10:20 Abnormal Lab Findings: Abnormal Labs 04/05/17 04/05/17 10:20 10:20 Sodium 133 L BUN 20 H Creatinine 1.14 H Triglycerides 237 H Cholesterol 241 H LDL Cholesterol, Calc 140 H Assessment and Plan (1) Hypertension Status: Acute (2) TIA (transient ischemic attack) Status: Acute Plan: It does appear patient had transient ischemic attack with symptoms which have resolved at this time. Vital signs of been stable. No further TIA symptoms reported. I recommend continue aspirin and Plavix. I recommend adjustment of statin therapy due to high lipid panel. As previously mentioned, CT, CTA, and carotid Dopplers were without any acute abnormalities. I will order an EEG and serum homocystine level. I recommend physical therapy to evaluate and treat. Continue medical management for blood pressure control. Continue neurological checks. I will continue to follow with you. Further recommendations to follow. Patient is stable for discharge from a neurological standpoint. Patient should follow up with neurology in 2-4 weeks. Thank you for allowing me to participate in the care of your patient. Feel free to call with any questions or concerns. I performed an examination of the patient and discussed the management with the TRAILER ASSEMBLER. I have reviewed the TRAILER ASSEMBLER notes and agree with the findings and plan of care.
[2017-04-06] MEDS: DONEPEZIL 5 MG TAB PO SCH (22:25)
[2017-04-06] MEDS: ATORVASTATIN 20 MG TAB PO SCH (22:25)
[2017-04-06] MEDS: CALCIUM CARBONATE 500 MG CHEWABLE PO SCH (22:25)
[2017-04-06] MEDS: METOPROLOL TARTRATE 25 MG TAB PO SCH (22:26)
[2017-04-07 06:08] LABS: Basophils % (A) 1 %; CH 32.9; CHCM 33.3; Eosinophils # (A) 0.2 k/uL (0-0.7); Eosinophils % (A) 3 %; HCT 33.2 % (34.0-46.0); HDW 2.23; HGB 11.1 gm/dL (11.4-16.0); Luc # (Auto) 0.27; Luc % (Auto) 4; Lymphocytes # (A) 1.2 k/uL (1.0-4.8); Lymphocytes % (A) 16 %; MCH 33.2 pg (25.0-35.0); MCHC 33.4 g/dL (31.0-37.0); MCV 99.2 fL (80.0-100.0); Mean Platelet Volume 6.5; Monocytes # (A) 0.6 k/uL (0-1.0); Monocytes % (A) 8 %; Neutrophils # (A) 5.1 k/uL (1.3-7.7); Neutrophils % (A) 70 %; RBC 3.35 m/uL (3.80-5.40); RDW 13.3 % (11.5-15.5); WBC 7.3 k/uL (3.8-10.6); WBC (Perox) 7.64
[2017-04-07 06:26] LABS: Calcium 9.4 mg/dL (8.4-10.2); Potassium 4.2 mmol/L (3.5-5.1); Total Bilirubin 0.5 mg/dL (0.2-1.3); Total Protein 5.8 g/dL (6.3-8.2)
[2017-04-07] MEDS: LEVOTHYROXINE 100 MCG TAB PO SCH (06:46)
[2017-04-07] MEDS: PANTOPRAZOLE 40 MG TABLET PO SCH (06:46)
[2017-04-07] MEDS ORDERED: FUROSEMIDE 40 MG TAB PO SCH (09:00)
[2017-04-07] MEDS: ALPRAZolam 0.25 MG TAB PO SCH (09:11)
[2017-04-07 10:07] VITALS: BP 143/60; PULSE 76; TEMP 96.9
--- NOTE | 2017-04-07 10:40 | P.DS ---
Providers Date of admission: 04/05/17 13:48 Attending physician: Lyn Raygoza Consults: 04/05/17 13:51 Consult Physician Routine Consulting Provider: Cem Navarro Consult Reason/Comments: TIA, altered mental status Do you want consulting provider notified?: Yes [facility] Course: This is a pleasant 86-year-old lady patient of Dr. Parker Maldonado, DR FREDDIE Gold. She has underlying history of CAD dementia hyperlipidemia hypertension and previous MRI hypothyroidism chronic neuropathy of right leg. She was doing well at home when friends noticed her to be mentally confused and disoriented, there is also some facial droop that was intermittently noted, patient has been noted to be weaker than usual, there was no focal motor deficits noted and no slurred speech, no chest pain no palpitations no shortness of breath no cough no aspiration no fever no chills no hematuria no urinary frequency. He was subsequently seen in emergency room for further evaluation, her last admission was approximately August 2016 when patient was admitted secondary to syncope and acute fall in the bathroom at that time, she has multiple syncopal events that week chronically She has trouble with her walking she had neuropathy of the right leg She has underlying spinal stenosis requires walker for ambulatory assistance, Patient did not have any history of CVA in the past, no arrhythmias no seizures in the emergency room urinalysis was negative, no leukocytosis, pain is 1.14 with BUN of 20, patient is admitted for possible TIA with altered mentation 04/06: Patient had CT of head that showed no acute intracranial abnormalities, atrophic change, chronic white matter ischemic change, chronic sinus mucosal disease, bilateral mastoiditis. CT angio showed no intracranial large vessel occlusion, significant stenosis, or aneurysmal changes, mild atherosclerotic narrowing at the right carotid bulb and approximately 50% narrowing of the proximal left ICA bifurcation. Echocardiogram showed mild concentric left ventricular hypertrophy, ejection fraction 40-45%, moderate aortic regurgitation and mild tricuspid regurgitation. Carotid ultrasound shows bilateral thickening and plaque with no significant hemodynamic stenosis. Triglycerides 237, LDL 140, HDL 54, total cholesterol 241. BUN/creatinine mildly elevated, BUN 20 creatinine 1.14. Patient reports she is feeling well today. Granddaughter was at the bedside, she reports she has noticed some worsening memory loss but is still able to care for herself at home. She has good family support who checks on her often. Will order physical therapy consult, still awaiting neuro consult. Blood pressure elevated on first arrival , blood pressure has come down and is well controlled on current medications. 04/07: Neurology consult appreciated. CT did not show any acute abnormality, carotid Doppler showed no significant hemodynamic stenosis, CTA showed no intracranial occlusion or stenosis. Her symptoms have resolved and no further TIA symptoms reported. Blood pressure has been been well controlled. Labs have remained stable. Patient will be discharged home with follow-up with Dr. Maldonado and neurology. Discharge diagnoses 1. Altered mentation with possibility of TIA 2. History of syncope in the past 3 history of cervical spinal stenosis C5-C6 4 CAD 5. Hyperlipidemia 6 Dementia 7. Neuropathy lower extremity 8 Osteoarthritis 9 Hypertensive urgency acute 10. Hypothyroidism The above impression and plan of care have been discussed and directed by signing physician. Shayla Rivas nurse practitioner acting as scribe for signing physician. Patient Condition at Discharge: Stable Plan - Discharge Summary New Discharge Prescriptions: Continue Simvastatin [Zocor] 40 mg PO HS Omeprazole [PriLOSEC] 20 mg PO AC-BRKFST Aspirin 81 mg PO DAILY Metoprolol Tartrate 50 mg PO QAM Docusate [Colace] 100 mg PO DAILY Metoprolol Tartrate [Lopressor] 25 mg PO HS Furosemide [Lasix] 40 mg PO Q48H Magnesium Oxide [Mag-Ox] 250 mg PO DAILY Clopidogrel [Plavix] 75 mg PO DAILY #30 tab Lisinopril [Prinivil] 20 mg PO BID #0 Donepezil [Aricept] 5 mg PO HS Calcium Carbonate [Calcium] 600 mg PO HS Baclofen [Lioresal] 10 mg PO HS PRN PRN Reason: LEG CRAMPS Potassium 99 mg PO DAILY Levothyroxine Sodium [Synthroid] 100 mcg PO DAILY Discharge Medication List Aspirin 81 mg PO DAILY 05/06/14 [History] Omeprazole [PriLOSEC] 20 mg PO AC-BRKFST 05/06/14 [History] Simvastatin [Zocor] 40 mg PO HS 05/06/14 [History] Metoprolol Tartrate 50 mg PO QAM 03/24/16 [History] Docusate [Colace] 100 mg PO DAILY 06/28/16 [History] Metoprolol Tartrate [Lopressor] 25 mg PO HS 06/28/16 [History] Furosemide [Lasix] 40 mg PO Q48H 07/20/16 [History] Magnesium Oxide [Mag-Ox] 250 mg PO DAILY 07/20/16 [History] Clopidogrel [Plavix] 75 mg PO DAILY #30 tab 09/22/16 [Rx] Lisinopril [Prinivil] 20 mg PO BID #0 09/22/16 [Rx] Baclofen [Lioresal] 10 mg PO HS PRN 04/05/17 [History] Calcium Carbonate [Calcium] 600 mg PO HS 04/05/17 [History] Donepezil [Aricept] 5 mg PO HS 04/05/17 [History] Levothyroxine Sodium [Synthroid] 100 mcg PO DAILY 04/05/17 [History] Potassium 99 mg PO DAILY 04/05/17 [History] Follow up Appointment(s)/Referral(s): Tylor Maldonado MD [Primary Care Provider] - 1-2 days
[2017-04-07] MEDS: ENOXAPARIN 40 MG/0.4 ML SYRINGE SQ SCH (10:46)
[2017-04-07] MEDS: CLOPIDOGREL 75 MG TAB PO SCH (10:46)
[2017-04-07] MEDS: DOCUSATE 100 MG CAP PO SCH (10:46)
[2017-04-07] MEDS: ASPIRIN 325 MG TAB PO SCH (10:46)
[2017-04-07] MEDS: MAGNESIUM OXIDE 400 MG TAB PO SCH (10:47)
[2017-04-07] MEDS: LISINOPRIL 20 MG TAB PO SCH (10:47)
[2017-04-07] MEDS: METOPROLOL TARTRATE 50 MG TAB PO SCH (10:47)
== END 2017-04-07 11:59 | disposition home health service (06) | DRG 69 ==
LOC: EC 09:59 → 6SEL 13:48
PROVIDERS: ADMIT Family Medicine; ATTEND Family Medicine
DX: G45.9 Transient cerebral ischemic attack, unspecified (principal); G62.9 Polyneuropathy, unspecified; M48.02 Spinal stenosis, cervical region; I08.2 Rheumatic disorders of both aortic and tricuspid valves; M51.24 Other intervertebral disc displacement, thoracic region; F03.90 Unspecified dementia, unspecified severity, without behavioral disturbance, psychotic disturbance, mood disturbance, and anxiety; M43.12 Spondylolisthesis, cervical region; E03.9 Hypothyroidism, unspecified; E78.5 Hyperlipidemia, unspecified; I10 Essential (primary) hypertension; I16.0 Hypertensive urgency; I25.10 Atherosclerotic heart disease of native coronary artery without angina pectoris; I25.2 Old myocardial infarction; K21.9 Gastro-esophageal reflux disease without esophagitis; M06.9 Rheumatoid arthritis, unspecified; M17.0 Bilateral primary osteoarthritis of knee; E55.9 Vitamin D deficiency, unspecified; Z79.02 Long term (current) use of antithrombotics/antiplatelets; Z79.82 Long term (current) use of aspirin; Z79.899 Other long term (current) drug therapy; Z88.1 Allergy status to other antibiotic agents; Z86.73 Personal history of transient ischemic attack (TIA), and cerebral infarction without residual deficits; Z95.1 Presence of aortocoronary bypass graft; Z96.642 Presence of left artificial hip joint; Z95.5 Presence of coronary angioplasty implant and graft; Z82.49 Family history of ischemic heart disease and other diseases of the circulatory system
CPT/HCPCS: 36415; 70450; 70496; 70498; 71020; 80053; 80061; 81003; 82550; 82553; 83090; 84484; 85025; 85610; 85730; 93005; 93306; 93880; 96374; 96375; 99285